=== PATIENT | male | born 1985 | race Hispanic/Latino ===

== ENCOUNTER 2021-05-28 18:05 | Emergency (ER) | payer SELFPAY ==
[2021-05-28] MEDS ORDERED: Silver Sulfadiazine 50 GM TUBE ONE (19:39)
[2021-05-28] MEDS ORDERED: Sulfameth/Trimethoprim DS 800-160mg TAB ONE (19:39)
[2021-05-28] MEDS ORDERED: Ibuprofen 800 MG TAB ONE (19:39)
== END 2021-05-28 20:19 | disposition home or self-care (01) ==
LOC: MADERS 18:05
DX: T25.211A Burn of second degree of right ankle, initial encounter (principal); F17.200 Nicotine dependence, unspecified, uncomplicated; Y99.0 Civilian activity done for income or pay; X08.8XXA Exposure to other specified smoke, fire and flames, initial encounter
CPT/HCPCS: 99283